=== PATIENT | male | born 1955 | race African-American/Black ===

== ENCOUNTER 2017-04-09 12:52 | Inpatient (IN) | payer MEDICAID, OTHER ==
[~2017-04-09] VITALS: Ht 182.9 cm; Wt 70.0 kg
[2017-04-09] MEDS ORDERED: ONDANSETRON HCL 4MG/2ML VIAL IV STA (13:29)
[2017-04-09] MEDS ORDERED: ASPIRIN 81MG TABLET PO STA (13:29)
[2017-04-09] MEDS ORDERED: MORPHINE SULFATE 4 MG/ML CPJ (NOT FOR IM USE) IV STA (13:29)
[2017-04-09 14:17] LABS: BASOPHILS % 1.1 % (0.0-2.0); EOSINOPHILS % 5.1 % (0.0-5.0); HEMATOCRIT. 40.3 % (42.0-52.0); HEMOGLOBIN. 13.6 g/dL (14.0-18.0); LYMPHOCYTES % 37.5 % (20.0-50.0); MEAN CORPUSCULAR HEMOGLOBIN 29.4 pg (28.0-32.0); MEAN CORPUSCULAR VOLUME 87.1 fL (80.0-94.0); MEAN PLATELET VOLUME 8.9 fl (7.4-10.4); MONOCYTES % 12.5 % (2.0-8.0); NEUTROPHILS % 43.8 % (40.0-76.0); PLATELET 131 x1000/uL (130-400); RED BLOOD CELL COUNT 4.63 mill/uL (4.7-6.1); RED CELL DISTRIBUTION WIDTH 13.6 % (11.6-14.6)
[2017-04-09 14:24] LABS: CHLORIDE 107 mEq/L (98-107)
[2017-04-09 14:26] LABS: INR 1.2; PROTHROMBIN TIME 12.3 sec (9.4-11.6)
[2017-04-09 14:34] LABS: CARBON DIOXIDE 28 mEq/L (21-32); CREATINE KINASE 184 IU/L (39-308)
[2017-04-09 14:35] LABS: TROPONIN I < 0.02 ng/mL (0.00-0.04)
[2017-04-09 14:40] LABS: CREATINE KINASE MB FRACTION 2.2 ng/mL (0.5-3.6)
[2017-04-09 15:32] LABS: *AMPHETAMINES SCREEN URINE NEGATIVE (NEGATIVE); *BARBITURATES SCREEN URINE NEGATIVE (NEGATIVE); *BENZODIAZEPINES SCREEN URINE NEGATIVE (NEGATIVE); *COCAINE SCREEN URINE PRESUMTIVE POSITIVE (NEGATIVE); CANNABINOID URINE SCREEN NEGATIVE (NEGATIVE); METHADONE URINE SCREEN NEGATIVE (NEGATIVE); OPIATES URINE SCREEN NEGATIVE (NEGATIVE); PHENCYCLIDINE URINE SCREEN NEGATIVE (NEGATIVE)
[2017-04-09 17:00] VITALS: BP 144/81
[2017-04-09 18:00] VITALS: BP 144/81
[2017-04-09 20:00] VITALS: BP 147/73
[2017-04-09 23:38] LABS: CREATINE KINASE 158 IU/L (39-308); CREATINE KINASE MB FRACTION 1.9 ng/mL (0.5-3.6); TROPONIN I < 0.02 ng/mL (0.00-0.04)
[2017-04-10] VITALS: BP 138/72
[2017-04-10 04:00] VITALS: BP 126/74
[2017-04-10 07:34] LABS: BASOPHILS % 1.8 % (0.0-2.0); EOSINOPHILS % 7.5 % (0.0-5.0); HEMOGLOBIN. 14.6 g/dL (14.0-18.0); LYMPHOCYTES % 45.8 % (20.0-50.0); MEAN CORPUSCULAR HEMOGLOBIN 29.8 pg (28.0-32.0); MEAN PLATELET VOLUME 9.3 fl (7.4-10.4); NEUTROPHILS % 33.9 % (40.0-76.0); PLATELET 136 x1000/uL (130-400); RED BLOOD CELL COUNT 4.89 mill/uL (4.7-6.1)
[2017-04-10 08:00] VITALS: BP 132/82
[2017-04-10] MEDS ORDERED: PNEUMOCOCCAL 23-VAL P-SAC VAC 0.5 ML IM ONE (08:00)
[2017-04-10 08:10] LABS: CARBON DIOXIDE 27 mEq/L (21-32); CHLORIDE 104 mEq/L (98-107); CREATINE KINASE 127 IU/L (39-308); HDL CHOLESTEROL 59 mg/dL (40-59); LDL CHOLESTEROL 86 mg/dL (5-100)
[2017-04-10 08:12] LABS: CREATINE KINASE MB FRACTION 1.7 ng/mL (0.5-3.6); TROPONIN I < 0.02 ng/mL (0.00-0.04)
[2017-04-10] MEDS: ENOXAPARIN 40MG/0.4ML SYR SUBCUT SCH (08:17)
[2017-04-10 12:00] VITALS: BP 122/78
[2017-04-10] MEDS: ASPIRIN 81MG EC TABLET PO SCH (13:24)
[2017-04-10] MEDS: AMLODIPINE 5MG TABLET PO SCH (13:24)
[2017-04-10 15:25] LABS: CREATINE KINASE 115 IU/L (39-308); CREATINE KINASE MB FRACTION 1.2 ng/mL (0.5-3.6); TROPONIN I < 0.02 ng/mL (0.00-0.04)
[2017-04-10 16:00] VITALS: BP 118/82
[2017-04-10 20:25] VITALS: BP 126/88
[2017-04-11 06:25] LABS: EOSINOPHILS % 6.4 % (0.0-5.0); HEMATOCRIT. 45.3 % (42.0-52.0); HEMOGLOBIN. 15.3 g/dL (14.0-18.0); LYMPHOCYTES % 34.7 % (20.0-50.0); MEAN CORPUSCULAR HEMOGLOBIN 29.7 pg (28.0-32.0); MEAN CORPUSCULAR VOLUME 87.7 fL (80.0-94.0); MEAN PLATELET VOLUME 9.4 fl (7.4-10.4); NEUTROPHILS % 44.9 % (40.0-76.0); PLATELET 142 x1000/uL (130-400); RED BLOOD CELL COUNT 5.16 mill/uL (4.7-6.1); RED CELL DISTRIBUTION WIDTH 13.8 % (11.6-14.6)
[2017-04-11 06:29] LABS: CARBON DIOXIDE 30 mEq/L (21-32); CHLORIDE 100 mEq/L (98-107)
[2017-04-11 06:32] LABS: TROPONIN I < 0.02 ng/mL (0.00-0.04)
[2017-04-11 08:00] VITALS: BP 128/82
[2017-04-11] MEDS: AMLODIPINE 5MG TABLET PO SCH (08:58)
[2017-04-11] MEDS: ASPIRIN 81MG EC TABLET PO SCH (08:59)
[2017-04-11] MEDS: ENOXAPARIN 40MG/0.4ML SYR SUBCUT SCH (08:59)
[2017-04-11 12:00] VITALS: BP 118/68
[2017-04-11 15:08] VITALS: BP 118/78
== END 2017-04-11 16:10 | disposition home or self-care (01) | DRG 203 ==
LOC: EDBEDREQ 14:03 → EDBEDREQTM 14:03 → ER 14:13 → 5WST 14:14 → UNDOADMIN 14:14 → ENRESERV 15:33 → CANRESERV 15:33 → ENRESERV 16:23
PROVIDERS: ADMIT Internal Medicine; ATTEND Internal Medicine
DX: M94.0 Chondrocostal junction syndrome [Tietze] (principal); N13.30 Unspecified hydronephrosis; I10 Essential (primary) hypertension; F14.10 Cocaine abuse, uncomplicated; R00.1 Bradycardia, unspecified; B19.20 Unspecified viral hepatitis C without hepatic coma; E78.00 Pure hypercholesterolemia, unspecified; E78.5 Hyperlipidemia, unspecified; F17.210 Nicotine dependence, cigarettes, uncomplicated; J44.9 Chronic obstructive pulmonary disease, unspecified; Z79.82 Long term (current) use of aspirin
CPT/HCPCS: 36415; 71010; 80048; 80053; 80061; 80305; 82550; 82553; 83036; 83690; 83880; 84443; 84484; 85025; 85610; 85730; 90732; 93005; 93306; 96374; 96375; 99291; J1650; J2270; J2405

== ENCOUNTER 2018-09-18 09:16 | Inpatient (IN) | payer MEDICAID, OTHER ==
[~2018-09-18] VITALS: Ht 182.9 cm; Wt 65.3 kg
[2018-09-18 11:03] LABS: BASOPHILS % 0.6 % (0.0-2.0); EOSINOPHILS % 0.1 % (0.0-5.0); HEMATOCRIT. 56.4 % (42.0-52.0); LYMPHOCYTES % 7.3 % (20.0-50.0); MEAN CORPUSCULAR HEMOGLOBIN 29.8 pg (28.0-32.0); MEAN CORPUSCULAR VOLUME 88.2 fL (80.0-94.0); MEAN PLATELET VOLUME 9.1 fl (7.4-10.4); MONOCYTES % 5.2 % (2.0-8.0); NEUTROPHILS % 86.8 % (40.0-76.0); PLATELET 196 x1000/uL (130-400); RED BLOOD CELL COUNT 6.39 mill/uL (4.7-6.1)
[2018-09-18 11:09] LABS: CHLORIDE 98 mEq/L (98-107)
[2018-09-18 11:13] LABS: ETHANOL BLOOD < 10 mg/dL
[2018-09-18] MEDS ORDERED: HYDRALAZINE 20MG/ML VIAL IV ONE (12:00)
[2018-09-18] MEDS ORDERED: MORPHINE SULFATE 4 MG/ML CPJ (NOT FOR IM USE) IV STA (13:03)
[2018-09-18] MEDS ORDERED: ONDANSETRON HCL 4MG/2ML INJ IV STA (13:03)
[2018-09-18] MEDS ORDERED: ASPIRIN 325MG TABLET PO ONE (14:15)
[2018-09-18] MEDS ORDERED: IOHEXOL-350 100 ML BOTTLE ONE (14:25)
[2018-09-18] MEDS ORDERED: CLONIDINE 0.1MG TABLET PO PRN (14:30)
[2018-09-18 15:45] VITALS: BP 137/89
[2018-09-18] MEDS ORDERED: AMLODIPINE 5MG TABLET PO SCH (17:00)
[2018-09-18 20:04] VITALS: BP 123/86
[2018-09-18] MEDS: LOSARTAN POTASSIUM 50 MG TABLET PO SCH (21:07)
[2018-09-19] VITALS: BP 119/78
[2018-09-19] MEDS ORDERED: ACETAMINOPHEN 325MG TABLET PO PRN (01:30)
[2018-09-19 01:33] LABS: *AMPHETAMINES SCREEN URINE NEGATIVE (NEGATIVE)
[2018-09-19 01:34] LABS: *BARBITURATES SCREEN URINE NEGATIVE (NEGATIVE); *BENZODIAZEPINES SCREEN URINE NEGATIVE (NEGATIVE); *COCAINE SCREEN URINE PRESUMTIVE POSITIVE (NEGATIVE); METHADONE URINE SCREEN NEGATIVE (NEGATIVE)
[2018-09-19 01:35] LABS: CANNABINOID URINE SCREEN PRESUMTIVE POSITIVE (NEGATIVE); OPIATES URINE SCREEN PRESUMTIVE POSITIVE (NEGATIVE); PHENCYCLIDINE URINE SCREEN PRESUMTIVE POSITIVE (NEGATIVE)
[2018-09-19] MEDS: HYDROCODONE/ACETAMINOPHEN 5/325MG TABLET PO PRN ×6 (01:45→18:01)
[2018-09-19 04:00] VITALS: BP 108/66
[2018-09-19 08:24] LABS: EOSINOPHILS % 0.2 % (0.0-5.0); HEMATOCRIT. 52.7 % (42.0-52.0); HEMOGLOBIN. 17.4 g/dL (14.0-18.0); LYMPHOCYTES % 18.6 % (20.0-50.0); MEAN CORPUSCULAR HEMOGLOBIN 29.7 pg (28.0-32.0); MEAN CORPUSCULAR VOLUME 89.8 fL (80.0-94.0); MONOCYTES % 11.5 % (2.0-8.0); NEUTROPHILS % 68.7 % (40.0-76.0); PLATELET 161 x1000/uL (130-400); RED BLOOD CELL COUNT 5.87 mill/uL (4.7-6.1); RED CELL DISTRIBUTION WIDTH 14.2 % (11.6-14.6)
[2018-09-19 08:32] LABS: CHLORIDE 102 mEq/L (98-107)
[2018-09-19 08:42] LABS: LDL CHOLESTEROL 122 mg/dL (5-100)
[2018-09-19 08:43] LABS: CREATINE KINASE 125 IU/L (39-308); CREATINE KINASE MB FRACTION 1.5 ng/mL (0.5-3.6)
[2018-09-19 08:44] LABS: HDL CHOLESTEROL 77 mg/dL (40-59)
[2018-09-19] MEDS: LOSARTAN POTASSIUM 50 MG TABLET PO SCH ×2 (09:00→22:28)
[2018-09-19] MEDS: ASPIRIN 81MG EC TABLET PO NR (09:30)
[2018-09-19 12:00] VITALS: BP 107/73
[2018-09-19 20:00] VITALS: BP 110/68
[2018-09-20] VITALS: BP 140/86
[2018-09-20 04:00] VITALS: BP 131/80
[2018-09-20 06:32] LABS: CHLORIDE 100 mEq/L (98-107)
[2018-09-20 07:06] LABS: BASOPHILS % 0.8 % (0.0-2.0); EOSINOPHILS % 0.7 % (0.0-5.0); HEMATOCRIT. 50.4 % (42.0-52.0); HEMOGLOBIN. 16.9 g/dL (14.0-18.0); MEAN CORPUSCULAR VOLUME 89.8 fL (80.0-94.0); MEAN PLATELET VOLUME 9.3 fl (7.4-10.4); MONOCYTES % 13.9 % (2.0-8.0); NEUTROPHILS % 61.6 % (40.0-76.0); PLATELET 159 x1000/uL (130-400); RED BLOOD CELL COUNT 5.61 mill/uL (4.7-6.1); RED CELL DISTRIBUTION WIDTH 14.2 % (11.6-14.6)
[2018-09-20 08:00] VITALS: BP 108/65
[2018-09-20] MEDS ORDERED: ASPIRIN 81MG EC TABLET PO SCH (09:00)
[2018-09-20] MEDS ORDERED: AMLODIPINE 2.5MG TABLET PO SCH (09:00)
[2018-09-20] MEDS: HYDROCODONE/ACETAMINOPHEN 5/325MG TABLET PO PRN ×2 (09:23→13:35)
[2018-09-20] MEDS: LOSARTAN POTASSIUM 50 MG TABLET PO SCH (09:24)
[2018-09-20] MEDS ORDERED: LACTULOSE 20G/30ML UDC PO NR (10:45)
[2018-09-20 12:00] VITALS: BP 108/71
[2018-09-20 16:00] VITALS: BP 119/82
[2018-09-20 18:08] VITALS: BP 119/82
== END 2018-09-20 18:05 | disposition home or self-care (01) | DRG 816 ==
LOC: ER 09:16 → 8WST 13:54 → EDBEDREQ 14:11 → ENRESERV 14:24
PROVIDERS: ADMIT Internal Medicine; ATTEND Internal Medicine
DX: T40.5X1A Poisoning by cocaine, accidental (unintentional), initial encounter (principal); I21.4 Non-ST elevation (NSTEMI) myocardial infarction; I11.0 Hypertensive heart disease with heart failure; I50.9 Heart failure, unspecified; I20.1 Angina pectoris with documented spasm; E78.5 Hyperlipidemia, unspecified; F17.200 Nicotine dependence, unspecified, uncomplicated; I25.2 Old myocardial infarction; Y92.89 Other specified places as the place of occurrence of the external cause; Z59.0 Homelessness
CPT/HCPCS: 36415; 71045; 71275; 74174; 80048; 80061; 80305; 82550; 82553; 83735; 83880; 84443; 84484; 93005; 93306; 99285; C1893; J0360; J2270; J2405; Q9967

== ENCOUNTER 2019-04-06 15:27 | Emergency (ER) | payer MEDICAID, OTHER ==
[~2019-04-06] VITALS: Ht 182.9 cm; Wt 66.0 kg
[2019-04-06] MEDS ORDERED: SODIUM CHLORIDE 0.9% 1,000 ML IV ONE (16:15)
[2019-04-06] MEDS ORDERED: ONDANSETRON HCL 4MG/2ML INJ IV STA (16:15)
[2019-04-06] MEDS ORDERED: MORPHINE SULFATE 4 MG/ML CPJ (NOT FOR IM USE) IV STA (16:15)
[2019-04-06] MEDS ORDERED: IOHEXOL-300 100 ML BOTTLE ONE (16:45)
[2019-04-06 17:53] LABS: BASOPHILS % 0.5 % (0.0-2.0); EOSINOPHILS % 0.4 % (0.0-5.0); HEMATOCRIT. 49.5 % (42.0-52.0); HEMOGLOBIN. 16.8 g/dL (14.0-18.0); MEAN CORPUSCULAR VOLUME 88.6 fL (80.0-94.0); MEAN PLATELET VOLUME 9.4 fl (7.4-10.4); NEUTROPHILS % 80.1 % (40.0-76.0); PLATELET 163 x1000/uL (130-400); RED BLOOD CELL COUNT 5.59 mill/uL (4.7-6.1); RED CELL DISTRIBUTION WIDTH 14.8 % (11.6-14.6)
[2019-04-06 17:55] LABS: CHLORIDE 106 mEq/L (98-107)
[2019-04-06 18:00] LABS: ETHANOL BLOOD < 10 mg/dL
[2019-04-06 18:05] LABS: CREATINE KINASE 816 IU/L (39-308)
[2019-04-06 18:08] LABS: CREATINE KINASE MB FRACTION 1.1 ng/mL (0.5-3.6)
[2019-04-06 18:41] VITALS: BP 169/100
== END 2019-04-06 18:42 | disposition short-term general hospital (02) ==
LOC: ER 15:27
DX: S02.2XXA Fracture of nasal bones, initial encounter for closed fracture (principal); S06.9X9A Unspecified intracranial injury with loss of consciousness of unspecified duration, initial encounter; S27.0XXA Traumatic pneumothorax, initial encounter; S22.42XA Multiple fractures of ribs, left side, initial encounter for closed fracture; S16.1XXA Strain of muscle, fascia and tendon at neck level, initial encounter; S39.81XA Other specified injuries of abdomen, initial encounter; I25.2 Old myocardial infarction; I10 Essential (primary) hypertension; J45.909 Unspecified asthma, uncomplicated; F17.210 Nicotine dependence, cigarettes, uncomplicated; F12.10 Cannabis abuse, uncomplicated; F10.21 Alcohol dependence, in remission; Y04.0XXA Assault by unarmed brawl or fight, initial encounter; Y93.89 Activity, other specified; Y92.89 Other specified places as the place of occurrence of the external cause
CPT/HCPCS: 36415; 70450; 70486; 71045; 71260; 72125; 74177; 80053; 80320; 82550; 82553; 83690; 83880; 84484; 85025; 93005; 96361; 96374; 96375; 99291; J2270; J2405; J7030; Q9967; G0480